=== PATIENT | male | born 2000 | race Caucasian/White ===

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

== ENCOUNTER 2021-03-10 18:24 | Emergency (ER) | payer BC ==
[~2021-03-10] VITALS: Ht 177 cm; Wt 110.0 kg
[~2021-03-10 18:24] MED LIST: AMOX500C2 PO; D-ME118S33 PO
[2021-03-10] MEDS ORDERED: RT-ALBUTEROL HFA 8.5 GM INHALER IH PRN (20:15)
[2021-03-10 20:23] VITALS: BP 134/99
--- NOTE | 2021-03-10 20:26 | ED Cough/URI ---
General Chief Complaint: Cough/Cold/Flu Symptoms Stated Complaint: SOA, COUGH, FEVER, SORE THROAT Source: patient Exam Limitations: no limitations (CARRI CORNEJO) History of Present Illness Date Seen by Provider: Mar 10, 2021 Time Seen by Provider: 20:21 Initial Comments Patient is a 20-year-old male presents ED with cough, wheezing chest tightness. Patient states symptoms started a few days ago. History of asthma. Does not have his albuterol inhaler with him. Woke up last night having difficulty breathing. Worsening cough throughout the day. States he was diagnosed with Covid a few months ago. Denies fever, sore throat, ear pain, vomiting, diarrhea. Patient requesting albuterol inhaler. He states she is allergic to steroids. (CARRI CORNEJO) Allergies and Home Medications Allergies Coded Allergies: prednisone (Verified Allergy, Unknown, 12/25/20) prochlorperazine (Verified Allergy, Unknown, 12/25/20) Patient Home Medication List Home Medication List Reviewed: Yes (CRARI CORNEJO) Amoxicillin (Amoxicillin) 500 Mg Capsule, 1,000 MG PO TID Prescribed by: KARTHIKEYAN GIANG on 12/25/20 1459 D-Methorphan Hb/P-Epd HCl/Bpm (Bromfed Dm Cough Syrup) 118 Ml Syrup, 5 ML PO Q4H PRN for COUGH Prescribed by: KARTHIKEYAN GIANG on 12/25/20 1438 Review of Systems Review of Systems Constitutional: No see HPI, No chills, No diaphoresis, No dizziness, No fever EENTM: No ear pain, No eye pain, No mouth pain, No nose pain Respiratory: No cough, No orthopnea, No short of breath, No wheezing Cardiovascular: No chest pain Gastrointestinal: No abdominal pain, No diarrhea, No nausea, No vomiting Musculoskeletal: No back pain, No joint pain, No joint swelling, No muscle pain Skin: No change in color, No change in hair/nails (CARRI CORNEJO) All Other Systems Reviewed Negative Unless Noted: Yes (CARRI CORNEJO) Past Hlxdwwh-[id number]-Xhjopo Hx Past Medical History Surgery/Hospitalization HX: Double knee surgery 2007. (CARRI CORNEJO) Physical Exam Vital Signs - First Documented 03/10/21 20:16 Pulse 81 Resp 16 B/P (MAP) 134/99 (111) Pulse Ox 97 O2 Delivery Room Air (AIDAN,RUTH Payment plugin DO) Capillary Refill : (CARRI CORNEJO) Height: '" Weight: lbs. oz. 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 nml as tested, No no motor/sensory defi cits, No alert, No normal mood/affect, No oriented x 3 (CARRI CORNEJO) Progress/Results/Core Measures Suspected Sepsis SIRS Temperature: Pulse: Respiratory Rate: Blood Pressure / Mean: (CARRI CORNEJO) Results/Orders Medications Given in ED Current Medications Medications Dose Ordered Sig/Manuela Route Start Time Stop Time Status Last Admin Dose Admin Albuterol Sulfate 2 PUFFS Q2H PRN IH 03/10/21 20:15 03/10/21 20:36 8 GM (AIDAN,RUTH K DO) Vital Signs/I&O 03/10/21 03/10/21 20:16 20:23 Pulse 81 81 Resp 16 14 B/P (MAP) 134/99 (111) 134/99 Pulse Ox 97 97 O2 Delivery Room Air Room Air (AIDAN,RUTH K DO) Vital Signs/I&O Capillary Refill : (CARRI CORNEJO) Departure Communication (Admissions) Patient with subtle wheezing throughout. Patient requesting breathing treatment. Since patient refused Covid swab patient was able to get albuterol inhaler which he requested. Improvement of symptoms. He was not hypoxic or tachycardic. No vomiting, diarrhea, fever, sore throat, ear pain. Exam otherwise benign. Patient lung sounds are clear bilateral. Recommend strongly follow-up outpatient for respiratory swab. If worsening symptoms return back to ED for further evaluation. (CARRI CORNEJO) Impression Primary Impression: Asthma exacerbation Disposition: HOME, SELF-CARE Condition: Stable Departure-Patient Inst. Decision time for Depature: 20:25 (CARRI CORNEJO) Referrals: NO,LOCAL PHYSICIAN (PCP/Family) Primary Care Physician Patient Instructions: Asthma, Adult ED Work/School Note: Family Work Note, Work Release Form Date Seen in the Emergency Department: Mar 10, 2021 Return to Work: Mar 12, 2021 ATTENDING PHYSICIAN NOTE: I WAS PHYSICALLY PRESENT ER PHYSICIAN WHEN THIS PATIENT WAS IN ER, BUT I WAS NOT INVOLVED IN ANY DECISION MAKING OR ANY CARE OF THIS PATIENT. (RUTH BERMUDEZ DO) CARRI CORNEJO Mar 10, 2021 20:26 RUTH BERMUDEZ DO Mar 11, 2021 00:00
== END 2021-03-10 20:23 | disposition home or self-care (01) ==
LOC: EDUNIT# 18:24 → ER 18:26
DX: J45.901 Unspecified asthma with (acute) exacerbation (principal); Z88.8 Allergy status to other drugs, medicaments and biological substances; Z86.16 Personal history of COVID-19
CPT/HCPCS: 99281